=== PATIENT | female | born 2000 | race African-American/Black ===

== ENCOUNTER 2022-07-15 09:01 | Emergency (ER) | payer OTHER ==
[~2022-07-15] VITALS: Ht 160 cm; Wt 73.2 kg
[2022-07-15 09:01] VITALS: BP 110/68
[2022-07-15] MEDS ORDERED: ONDANSETRON 4 MG (ZOFRAN) ORAL DISSOLVE TAB PO STA (09:23)
[2022-07-15] MEDS ORDERED: ONDA8TAB13 SL (09:36)
--- NOTE | 2022-07-15 09:36 | ED GI ---
General Chief Complaint: Abdominal/GI Problems Stated Complaint: N/V Nursing Triage Note: PT [id number] IN BY [facility] FROM HOME WITH S/O AND 2 CHILDREN. STATES SHE STARTED AROUND 0200 WITH ABD PAIN, VOMITING,DIARRHEA. Source of Information: Patient, EMS History of Present Illness Date Seen by Provider: Jul 15, 2022 Time Seen by Provider: 09:07 Initial Comments 22-year-old female who is otherwise healthy but currently presents to the emergency department today for nausea and vomiting. Symptoms started about 230 this morning. She her boyfriend and 2 children all arrive via ambulance for similar symptoms. The youngest child has been sick for couple of days with similar symptoms. Everyone else started vomiting about 230 this morning. She has diffuse abdominal cramping without any focal pain. No vaginal symptoms. No urinary symptoms. Firefighters checked at home for carbon monoxide prior to transfer and it was negative. All other systems reviewed and negative except documented per HPI. Voice recognition software was used to help create this chart Allergies and Home Medications Allergies Coded Allergies: No Known Drug Allergies (Unverified , 07/15/22) Patient Home Medication List Home Medication List Reviewed: Yes Review of Systems Review of Systems Constitutional: see HPI Past Afkqyyi-Aobact-Jevpbh Hx Patient Social History Tobacco Use?: No Use of E-Cig and/or Vaping dev: No Substance use?: No Alcohol Use?: No Pt feels they are or have been: No Physical Exam Vital Signs Vital Signs - First Documented 07/15/22 09:01 Temp 37.4 Pulse 97 Resp 16 B/P (MAP) 110/68 (82) Pulse Ox 99 O2 Delivery Room Air Capillary Refill : Less Than 3 Seconds Height/Weight/BMI Height: '" Weight: lbs. oz. kg; 28.00 BMI Method: General Appearance: no apparent distress HEENT: normal ENT inspection, pharynx normal Neck: non-tender, supple Respiratory: chest non-tender, lungs clear, normal breath sounds, no res piratory distress, no accessory muscle use Cardiovascular: regular rate, rhythm, no murmur Gastrointestinal: normal bowel sounds, non tender, soft, no organomegaly Extremities: normal capillary refill Neurologic/Psychiatric: alert, oriented x 3 Skin: normal color, warm/dry Progress/Results/Core Measures Results/Orders My Orders Orders - ALEKSANDR LEMA DO Ondansetron Oral Dissolve Tab (Zofran (07/15/22 09:23) Vital Signs/I&O 07/15/22 09:01 Temp 37.4 Pulse 97 Resp 16 B/P (MAP) 110/68 (82) Pulse Ox 99 O2 Delivery Room Air Blood Pressure Mean: 82 Departure Communication (Admissions) Given the entire family has similar symptoms I think this likely viral in nature. Parents had different meals in the children last night so I doubt that this is foodborne. Carbon monoxide testing at the scene was negative. Discharged with supportive care. Tolerating p.o. prior to discharge. Impression Primary Impression: Nausea and vomiting Qualified Codes: R11.2 - Nausea with vomiting, unspecified Disposition: HOME, SELF-CARE Condition: Stable Departure-Patient Inst. Referrals: NO,LOCAL PHYSICIAN (PCP/Family) Primary Care Physician Patient Instructions: Nausea and Vomiting, Adult ED Add. Discharge Instructions: Increase your fluids, rest. Use Zofran as needed for nausea by dissolving it under your tongue. Return to the emergency department for any severe concerns. Follow-up with your primary doctor for any nonemergent needs. All discharge instructions reviewed with patient and/or family. Voiced understanding. Scripts Ondansetron (Ondansetron Odt) 8 Mg Tab.rapdis 8 MG SL Q6H PRN for NAUSEA/VOMITING for 5 Days, #20 TAB Prov: ALEKSANDR LEMA DO 07/15/22 ALEKSANDR LEAM DO Jul 15, 2022 09:36
== END 2022-07-15 10:00 | disposition home or self-care (01) ==
LOC: EDUNIT# 09:09 → ER 09:10
DX: O21.9 Vomiting of pregnancy, unspecified (principal); Z3A.00 Weeks of gestation of pregnancy not specified
CPT/HCPCS: 99283

== ENCOUNTER 2022-08-01 17:19 | Emergency (ER) | payer OTHER ==
[~2022-08-01] VITALS: Ht 160 cm; Wt 73.0 kg
[~2022-08-01 17:19] MED LIST: ONDA8TAB13 SL
[2022-08-01 17:52] LABS: BILIRUBIN,URINE NEGATIVE (NEGATIVE); CLARITY,URINE SL CLOUDY; COLOR,URINE YELLOW; GLUCOSE, URINE (UA) NEGATIVE (NEGATIVE); KETONES,URINE NEGATIVE (NEGATIVE); LEUKOCYTE ESTERASE ,URINE 3+ (NEGATIVE); NITRITE,URINE POSITIVE (NEGATIVE); PH,URINE 7.5 (5-9); PROTEIN,URINE NEGATIVE (NEGATIVE)
--- NOTE | 2022-08-01 17:54 | ED Abdominal Pain ---
General Chief Complaint: Back Problems Stated Complaint: BACK/ABD PAIN 17 WKS PREG Nursing Triage Note: AMBULATED TO ROOM 07 WITH COMPLAINTS OF LOWER RIGHT BACK PAIN THAT RADIATES INTO ABD. PT IS 17 WEEKS GESTATION. Source of Information: Patient Exam Limitations: No Limitations History of Present Illness Date Seen by Provider: August 01, 2022 Time Seen by Provider: 17:49 Initial Comments Patient is a 22-year-old female who is G3, P2 currently 17 weeks who presents ED with right flank and right sided abdominal pain. Pain started 3 days ago with a gradual onset. Pain is constant described as sharp and dull. Radiates from the back to the front. No history of previous abdominal surgery. She states pain appears to be worse after she eats or when she gets full. Pain is also worse with any type of movement. Denies of any specific injury. Denies any pain with urination, frequent urination or dark urine. Denies history of kidney stones. No vaginal bleeding or vaginal discharge. Currently on prenatals. She follows up with Dr. Arellano [employer]. She denies fever, chills, chest pain, cough, shortness of breath, headache, fever, nausea, vomiting, diarrhea. Allergies and Home Medications Allergies Coded Allergies: No Known Drug Allergies (Unverified , 07/15/22) Patient Home Medication List Home Medication List Reviewed: Yes Cephalexin (Cephalexin) 500 Mg Tablet, 500 MG PO BID Prescribed by: MAYDA SWARTZ on 08/01/221926 Ondansetron (Ondansetron Odt) 8 Mg Tab.rapdis, 8 MG SL Q6H PRN for NAUSEA/VOMITING Prescribed by: ALEKSANDR LEMA MD on 07/15/22 9240 Review of Systems Review of Systems Constitutional: No chills, No diaphoresis, No malaise, No weakness EENTM: No Double Vision, No Eye Pain, No Mouth Swelling Respiratory: Denies Cough, Denies Orthopnea, Denies Shortness of Air, Denies SOA at Rest Cardiovascular: Denies Chest Pain, Denies Edema Gastrointestinal: Abdominal Pain; Denies Diarrhea, Denies Nausea, Denies Vomiting Genitourinary: Denies Burning, Denies Discharge, Denies Drainage, Denies Frequency; Flank Pain Musculoskeletal: back pain; No joint pain Skin: No change in color All Other Systems Reviewed Negative Unless Noted: Yes Past Ucieejh-Qtbgcg-Uurpua Hx Patient Social History Tobacco Use?: No Substance use?: No Alcohol Use?: No Past Medical History Expected Date of Delivery: Jan 05, 2023 Physical Exam Vital Signs Vital Signs - First Documented 08/01/22 17:25 Temp 36.6 Pulse 80 Resp 16 B/P (MAP) 109/64 (79) Pulse Ox 100 O2 Delivery Room Air Capillary Refill : Less Than 3 Seconds Height/Weight/BMI Height: '" Weight: lbs. oz. kg; 28.00 BMI Method: General Appearance: WD/WN, no apparent distress HEENT: PERRL/EOMI, normal ENT inspection, TMs normal, pharynx normal Neck: non-tender, full range of motion, supple, normal inspection Respiratory: chest non-tender, lungs clear, normal breath sounds, no respiratory distress, no accessory muscle use Cardiovascular: regular rate, rhythm, no edema, no gallop, no JVD Gastrointestinal: normal bowel sounds, non tender, soft, no organomegaly Extremities: normal range of motion, non-tender, normal inspection, no pedal edema Back: normal inspection, no CVA tenderness, no vertebral tenderness Neurologic/Psychiatric: authorizer II-XII nml as tested, no motor/sensory deficits, alert, normal mood/affect, oriented x 3 Skin: normal color, warm/dry Progress/Results/Core Measures Results/Orders Lab Results Laboratory Tests Test 08/01/22 17:38 08/01/22 17:55 Range/Units Urine Color YELLOW Urine Clarity SL CLOUDY Urine pH 7.5 5-9 Urine Specific [place] 1.010 L 1.016-1.022 Urine Protein NEGATIVE NEGATIVE Urine Glucose (UA) NEGATIVE NEGATIVE Urine Ketones NEGATIVE NEGATIVE Urine Nitrite POSITIVE H NEGATIVE Urine Bilirubin NEGATIVE NEGATIVE Urine Urobilinogen 0.2 < = 1.0 MG/DL Urine Leukocyte Esterase 3+ H NEGATIVE Urine RBC (Auto) 1+ H NEGATIVE Urine RBC NONE /HPF Urine WBC >100 H /HPF Urine Crystals NONE /LPF Urine Bacteria FEW H /HPF Urine Casts NONE /LPF Urine Mucus NEGATIVE /LPF Urine Culture Indicated YES White Blood Count 8.5 4.3-11.0 10^3/uL Red Blood Count 4.29 3.80-5.11 10^6/uL Hemoglobin 12.6 11.5-16.0 g/dL Hematocrit 37 35-52 % Mean Corpuscular Volume 85 80-99 fL Mean Corpuscular Hemoglobin 29 25-34 pg Mean Corpuscular Hemoglobin Concent 34 32-36 g/dL Red Cell Distribution Width 14.7 H 10.0-14.5 % Platelet Count 205 130-400 10^3/uL Mean Platelet Volume 10.8 9.0-12.2 fL Immature Granulocyte % (Auto) 0 % Neutrophils (%) (Auto) 80 H 42-75 % Lymphocytes (%) (Auto) 11 L 12-44 % Monocytes (%) (Auto) 7 0-12 % Eosinophils (%) (Auto) 1 0-10 % Basophils (%) (Auto) 0 0-10 % Neutrophils # (Auto) 6.8 1.8-7.8 10^3/uL Lymphocytes # (Auto) 0.9 L 1.0-4.0 10^3/uL Monocytes # (Auto) 0.6 0.0-1.0 10^3/uL Eosinophils # (Auto) 0.1 0.0-0.3 10^3/uL Basophils # (Auto) 0.0 0.0-0.1 10^3/uL Immature Granulocyte # (Auto) 0.0 0.0-0.1 10^3/uL Sodium Level 137 135-145 MMOL/L Potassium Level 3.6 3.6-5.0 MMOL/L Chloride Level 110 H 98-107 MMOL/L Carbon Dioxide Level 18 L 21-32 MMOL/L Anion Gap 9 5-14 MMOL/L Blood Urea Nitrogen 5 L 7-18 MG/DL Creatinine 0.78 0.60-1.30 MG/DL Estimat Glomerular Filtration Rate 109 BUN/Creatinine Ratio 6 Glucose Level 62 L 70-105 MG/DL Calcium Level 9.0 8.5-10.1 MG/DL Corrected Calcium 9.3 8.5-10.1 MG/DL Total Bilirubin 0.5 0.1-1.0 MG/DL Aspartate Amino Transf (AST/SGOT) 15 5-34 U/L Alanine Aminotransferase (ALT/SGPT) 9 0-55 U/L Alkaline Phosphatase 58 40-136 U/L Total Protein 7.3 6.4-8.2 GM/DL Albumin 3.6 3.2-4.5 GM/DL Lipase 53 8-78 U/L My Orders Orders - KAITLYN DIAZ Ua Culture If Indicated (08/01/22 17:35) Cbc With Automated Diff (08/01/22 17:48) Comprehensive Metabolic Panel (08/01/22 17:48) Acetaminophen Tablet/Caplet (Tylenol T (08/01/22 18:00) Lipase (08/01/22 17:48) Heart Tones (08/01/22 17:57) Urine Culture (08/01/22 17:38) Ceftriaxone Iv/Im (Rocephin Iv/Im) (08/01/22 18:05) Ceftriaxone Iv/Im (Rocephin Iv/Im) (08/01/22 18:15) Lidocaine 1% Inj 20 Ml (Xylocaine 1% Inj (08/01/22 18:15) Ns Iv 1000 Ml (Sodium Chloride 0.9%) (08/01/22 18:46) Metoclopramide Injection (Reglan Injecti (08/01/22 19:00) Ns Iv 1000 Ml (Sodium Chloride 0.9%) (08/01/22 18:58) Medications Given in ED Current Medications Medications Dose Ordered Sig/Bright Route Start Time Stop Time Status Last Admin Dose Admin Acetaminophen 650 mg ONCE ONCE PO 08/01/22 18:00 08/01/22 18:01 DC 08/01/22 18:03 650 MG Ceftriaxone Sodium 1,000 mg ONCE ONCE IM 08/01/22 18:15 08/01/22 18:16 DC 08/01/22 18:21 1,000 MG Lidocaine HCl 2.1 ml ONCE ONCE INJ 08/01/22 18:15 08/01/22 18:16 DC 08/01/22 18:21 2.1 ML Metoclopramide HCl 10 mg ONCE ONCE IVP 08/01/22 19:00 08/01/22 19:01 DC 08/01/22 19:11 10 MG Vital Signs/I&O 08/01/22 08/01/22 17:25 20:59 Temp 36.6 36.0 Pulse 80 75 Resp 16 18 B/P (MAP) 109/64 (79) 101/61 Pulse Ox 100 100 O2 Delivery Room Air Room Air Blood Pressure Mean: 79 Comment Sinus rhythm, left atrial lodgment, left axis deviation, T wave inversion in V1 and V2. 86 bpm, QRS duration 108 MS, QTc 370 MS Departure Communication (PCP) . 17 weeks . Right-sided flank pain with radiation to right sided abdomen. No urinary symptoms, vaginal bleeding, vaginal discharge. No vomiting or diarrhea. Currently on prenatals. Following Dr. Arellano. No history of kidney stones. Rates pain 6 out of 10. Due to current complaint CBC, CMP, li pase, urinalysis, cardiac activity. Patient was started on a liter of fluid. Urinalysis positive for nitrites and leukocytes and white blood cells >100. Concerning for pyelo versus cystitis versus nephrolithiasis versus cholecystitis versus appendicitis. She did have tenderness to right upper quadrant, right lower quadrant, and left lower quadrant and right flank. Pain w orse in the right flank. CBC showed normal white blood count, chemistry grossly unremarkable. Patient was given Reglan as she felt nauseous. Patient was given a gram of Rocephin. Patient was started on a second liter of fluid. She was given Tylenol for pain. Imaging limited secondary to . Do not have ultrasound at night. Not able to rule out acute cholecystitis, nephrolithiasis or appendicitis. I do not feel that this is a surgical abdomen. She has a normal white blood count and afebrile. Pain appears to be more generalized. Concern that this may be cystitis versus pyelonephritis. This would make sense of the right flank pain. She does not appear in distress. I did discuss patient with Dr. Arellano her [employer] who recommend following up at 10 AM tomorrow for ultrasound of her right kidney and gallbladder and appendix. She did report some pain after eating but describes it as more full sensation. Pain appears to be worse with movement. Patient is scheduled to follow-up tomorrow. If any w orsening symptoms such as fever, chills or abdominal pain to return back to ED. Impression Primary Impression: UTI (urinary tract infection) Disposition: 01 HOME, SELF-CARE Condition: Stable Departure-Patient Inst. Decision time for Depature: 19:27 Referrals: CECELIA ARELLANO MD (PCP/Family) Primary Care Physician Patient Instructions: Urinary Tract Infection, Adult (DC) Add. Discharge Instructions: You will need to follow-up with Dr. Arellano tomorrow at 10 AM for further evaluation and ultrasound. Antibiotics as prescribed. Recommend staying hydrated. return if any symptoms worsen All discharge instructions reviewed with patient and/or family. Voiced understanding. Scripts Cephalexin (Cephalexin) 500 Mg Tablet 500 MG PO BID for 7 Days, #14 TAB Prov: KAITLYN DIAZ 08/01/22 KAITLYN DIAZ August 01, 2022 17:54
[2022-08-01] MEDS ORDERED: ACETAMINOPHEN 325 MG TABLET PO ONE (18:00)
[2022-08-01 18:01] LABS: BACTERIA,URINE FEW /HPF; WBC,URINE >100 /HPF
[2022-08-01 18:04] LABS: BASOPHILS % (AUTO) 0 % (0-10); EOSINOPHILS # (AUTO) 0.1 10^3/uL (0.0-0.3); EOSINOPHILS % (AUTO) 1 % (0-10); HEMATOCRIT 37 % (35-52); HEMOGLOBIN 12.6 g/dL (11.5-16.0); LYMPHOCYTES # (AUTO) 0.9 10^3/uL (1.0-4.0); LYMPHOCYTES % (AUTO) 11 % (12-44); MEAN CORPUSCULAR HEMOGLOBIN 29 pg (25-34); MEAN CORPUSCULAR HGB CONC 34 g/dL (32-36); MEAN CORPUSCULAR VOLUME 85 fL (80-99); MEAN PLATELET VOLUME 10.8 fL (9.0-12.2); MONOCYTES # (AUTO) 0.6 10^3/uL (0.0-1.0); MONOCYTES % (AUTO) 7 % (0-12); NEUTROPHILS # (AUTO) 6.8 10^3/uL (1.8-7.8); NEUTROPHILS % (AUTO) 80 % (42-75); PLATELET COUNT 205 10^3/uL (130-400); WHITE BLOOD COUNT 8.5 10^3/uL (4.3-11.0)
[2022-08-01] MEDS ORDERED: cefTRIAXone IV/IM 1,000 MG in NS (IVPB) 50 ML IV STA (18:05)
[2022-08-01] MEDS ORDERED: cefTRIAXone 1,000 MG VIAL (for IV or IM) IM ONE (18:15)
[2022-08-01] MEDS ORDERED: LIDOCAINE 1% INJ 20 ML VIAL INJ ONE (18:15)
[2022-08-01 18:23] LABS: ALBUMIN 3.6 GM/DL (3.2-4.5)
[2022-08-01 18:24] LABS: POTASSIUM 3.6 MMOL/L (3.6-5.0)
[2022-08-01 18:26] LABS: TOTAL PROTEIN 7.3 GM/DL (6.4-8.2)
[2022-08-01 18:28] LABS: BILIRUBIN,TOTAL 0.5 MG/DL (0.1-1.0)
[2022-08-01 18:29] LABS: CREATININE SERUM 0.78 MG/DL (0.60-1.30)
[2022-08-01] MEDS ORDERED: NS IV 1000 ML 1,000 ML IV STA ×2 (18:46→18:58)
[2022-08-01] MEDS ORDERED: METOCLOPRAMIDE INJ 10 MG/2 ML (REGLAN) IVP ONE (19:00)
[2022-08-01] MEDS ORDERED: CEPH500T PO (19:27)
[2022-08-01 20:59] VITALS: BP 101/61
== END 2022-08-01 21:05 | disposition home or self-care (01) ==
LOC: EDUNIT# 17:19 → ER 17:21
DX: O23.42 Unspecified infection of urinary tract in pregnancy, second trimester (principal); N39.0 Urinary tract infection, site not specified; Z3A.17 17 weeks gestation of pregnancy
CPT/HCPCS: 36415; 80053; 81000; 83690; 85025; 87077; 87088; 87186